=== PATIENT | female | born 1970 | race African-American/Black ===

== ENCOUNTER 2016-09-14 13:41 | Emergency (ER) | payer MEDICAID ==
[~2016-09-14] VITALS: Ht 157.5 cm; Wt 86.2 kg
[~2016-09-14 13:41] MED LIST: ADVAIR 250-501 EACH INH; ALBUTEROL SULFAT2 MG PO; AMBIEN5 MG ORAL; AZITHROMYCIN250 MG ORAL; FUROSEMIDE40 MG ORAL; HYDROCORTISONE28 G2 TP; IBUPROFEN600 MG ORAL; NORCO 5-325 TA1 EAC1 ORAL; NORVASC10 MG ORAL; POTASSIUM20 MEQ/15 ORAL; PREDNISONE20 MG ORAL; ROBAXIN-750750 MG PO
[2016-09-14 14:25] VITALS: BP 118/67
[2016-09-14] MEDS ORDERED: PredniSONE 20mg tab ORAL ONE (14:45)
[2016-09-14] MEDS ORDERED: Morphine Sulfate 4mg/ml Inj IM ONE (15:30)
[2016-09-14] MEDS ORDERED: PREDNISONE20 MG ORAL (16:22)
[2016-09-14 16:31] VITALS: BP 111/62
[2016-09-14 16:33] VITALS: BP 111/62
--- NOTE | 2016-09-14 18:22 | Emergency Room Report ---
History of Present Illness General Chief Complaint: Pain Source: Patient Present Illness HPI The patient is a 45-year-old female with history of SLE and fibromyalgia presenting for total body pain which began yesterday. The patient states that she has taken 3 [place] today without relief. The patient states that she is under pain management but has not been able to see her doctor because of insurance troubles. The patient describes pain as a 10 out of 10 total body ache. Pain described as dull. Pain worse with touch and movement. The patient states that this does feel like similar past flareups. The patient denies other symptoms including nausea, vomiting, fever, chills, chest pain, shortness of breath Allergies: Coded Allergies: No Known Allergies (Unverified , 03/13/12) Patient History Past Medical History: see triage record Pertinent Family History: none Last Menstrual Period: 03/2016 Reviewed Nursing Documentation: PMH: Agreed, PSxH: Agreed Nursing Documentation-PMH Past Medical History: No History, Except For Hx Hypertension: Yes Hx Asthma: Yes Hx Diabetes: No Review of Systems All Other Systems: negative except mentioned in HPI Physical Exam Vital Signs Date Time Temp Pulse Resp B/P Pulse Ox O2 Delivery O2 Flow Rate FiO2 09/14/16 13:53 98.1 94 18 111/75 94 Room Air Sp02 EP Interpretation: reviewed, normal General Appearance: no apparent distress, alert, GCS 15, non-toxic Head: normocephalic, atraumatic Eyes: bilateral eye PERRL, bilateral eye normal inspection ENT: hearing grossly normal, normal pharynx, no angioedema, normal voice Neck: full range of motion, supple/symm/no masses Musculoskeletal: normal range of motion, other - slow gait, tender - diffuse Neurologic: alert, oriented x3, responsive, motor strength/tone normal, sensory intact, speech normal Psychiatric: judgement/insight normal, memory normal, mood/affect normal, no suicidal/homicidal ideation Skin: normal color, no rash, warm/dry, well hydrated Lymphatic: no adenopathy Medical Decision Making PA Attestation Dr. Montejo is my supervising physician. Patient management was discussed with my supervising physician Diagnostic Impression: Primary Impression: Chronic pain Additional Impression: Lupus ER Course The patient is a 45-year-old female with history of SLE and fibromyalgia presenting for total body pain which began yesterday. Ddx considered include but not limited to sprain/strain, fracture, chronic pain , narcotic medication seeking behavior PE: vitals WNL. NADThe patient is resting comfortably in a wheelchair. Diffuse tenderness to palpation. ambulates slowly. The patient was first given prednisone and Motrin for pain but states that this has not helped. The patient is then given 4 mg of morphine IM and states that she is feeling better. The patient will have to followup with pain management and primary doctor for further care. Patient is given a prescription for prednisone. ER precautions are given Last Vital Signs Date Time Temp Pulse Resp B/P Pulse Ox O2 Delivery O2 Flow Rate FiO2 09/14/16 16:33 98.3 80 14 111/62 100 Room Air Status: improved Disposition: HOME, SELF-CARE Condition: Improved Scripts Prednisone* (PREDNISONE*) 20 Mg Tablet 20 MG ORAL DAILY, #5 TAB 0 Refills Prov: MANDI HILL 09/14/16 Referrals: NON PHYSICIAN (PCP) Patient Instructions: Chronic Pain Additional Instructions: I discussed my findings with the patient. All questions and concerns have been answered. Treatment and medication compliance have been addressed. I advised the patient that they need to follow up with PMD in 3-5 days. Return to ED if symptoms worsen, new symptoms arise, or if needed for any reason. Patient verbalized understanding of discharge instructions. The patient will follow up with pain management as discussed MANDI HILL Sep 14, 2016 18:22
== END 2016-09-14 16:33 | disposition home or self-care (01) ==
LOC: EMR 14:20
DX: G89.29 Other chronic pain (principal); M32.9 Systemic lupus erythematosus, unspecified; I10 Essential (primary) hypertension; J45.909 Unspecified asthma, uncomplicated
CPT/HCPCS: 96372; 99283; J2270

== ENCOUNTER 2017-06-03 22:49 | Emergency (ER) | payer MEDICAID ==
[~2017-06-03] VITALS: Ht 157.5 cm; Wt 86.2 kg
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
[2017-06-03 23:08] VITALS: BP 130/86
[2017-06-03] MEDS ORDERED: IBUPROFEN600 MG ORAL (23:09)
[2017-06-03] MEDS ORDERED: Ketorolac 60mg Inj IM ONE (23:15)
[2017-06-03 23:30] VITALS: BP 130/86
== END 2017-06-03 23:40 | disposition home or self-care (01) ==
LOC: EMR 23:00
DX: N64.4 Mastodynia (principal); G89.29 Other chronic pain; J45.909 Unspecified asthma, uncomplicated; I10 Essential (primary) hypertension; M32.9 Systemic lupus erythematosus, unspecified; M79.7 Fibromyalgia
CPT/HCPCS: 96372; 99284

== ENCOUNTER 2017-06-25 21:54 | Emergency (ER) | payer MEDICAID ==
[~2017-06-25] VITALS: Ht 157.5 cm; Wt 86.2 kg
[2017-06-25] MEDS ORDERED: NORCO 10-325 T1 EACH ORAL (22:05)
[2017-06-25] MEDS ORDERED: METRONIDAZOLE250 MG ORAL (22:05)
[2017-06-25 22:13] VITALS: BP 140/89
[2017-06-25 22:34] LABS: APPEARANCE,URINE SLIGHTLY CLOUDY; KETONES,URINE NEGATIVE (NEGATIVE); LEUKOCYTE ESTERASE ,URINE 3+ (NEGATIVE); NITRITE,URINE NEGATIVE (NEGATIVE); PH,URINE 6 (4.5-8.0); PROTEIN,URINE 2+ (NEGATIVE); UROBILINOGEN,URINE NORMAL MG/DL (0.0-1.0)
[2017-06-25 22:55] LABS: BACTERIA,URINE FEW /HPF; SQUAMOUS EPITHELIAL CELL,UR FEW /LPF (NONE/OCC)
[2017-06-25] MEDS ORDERED: Fluconazole 100mg tab ORAL ONE (23:00)
[2017-06-25 23:05] VITALS: BP 140/89
--- NOTE | 2017-06-25 23:35 | Emergency Room Report ---
History of Present Illness General Chief Complaint: Female Urogenital Problems Source: Patient Present Illness HPI 46YOF with 2-3 days white thick vaginal discharge Recently took Abx for ?mastitis bilaterally Spoke to her PMD, put her on flagyl. Has taken for 1 day with no improvement Denies dusyria, polyuria, fever/chills, abd pain, vomiting Allergies: Coded Allergies: No Known Allergies (Unverified , 03/13/12) Patient History Past Medical History: none Past Surgical History: none Pertinent Family History: none Social History: Denies: smoking, alcohol use, drug use Last Menstrual Period: 05/07/17 Now: No : 4 Para: 0 Immunizations: UTD Reviewed Nursing Documentation: PMH: Agreed, PSxH: Agreed Nursing Documentation-PMH Hx Hypertension: Yes Hx Asthma: Yes Hx Diabetes: No Review of Systems All Other Systems: negative except mentioned in HPI Physical Exam Vital Signs Date Time Temp Pulse Resp B/P (MAP) Pulse Ox O2 Delivery O2 Flow Rate FiO2 06/25/17 21:59 98.1 86 14 140/89 99 Room Air Sp02 EP Interpretation: reviewed, normal General Appearance: normal inspection, well appearing, no apparent distress, alert, GCS 15, non-toxic Head: normocephalic, atraumatic Eyes: bilateral eye PERRL, bilateral eye EOMI ENT: normal ENT inspection, hearing grossly normal, normal pharynx, no angioedema, normal voice, TMs + canals normal, uvula midline, moist mucus membranes Neck: normal inspection, full range of motion, supple, thyroid normal, no meningismus, no bony tend Respiratory: normal inspection, lungs clear, normal breath sounds, no rhonchi, no respiratory distress, no retraction, no accessory muscle use, no wheezing, speaking full sentences Cardiovascular #1: regular rate, rhythm, no edema, no JVD, normal capillary refill Gastrointestinal: normal inspection, normal bowel sounds, non tender, soft, no mass, no peritonitis, non-distended, no guarding, no hernia, no pulsatile mass Genitourinary: no CVA tenderness Musculoskeletal: normal inspection, back normal, normal range of motion, no calf tenderness, pelvis stable, Jim's Sign negative Neurologic: normal inspection, alert, oriented x3, responsive, type cutter III-XII nml as tested, motor strength/tone normal, cerebellar normal, normal gait, speech normal Psychiatric: normal inspection, judgement/insight normal, mood/affect normal, no suicidal/homicidal ideation, no delusions Skin: normal inspection, normal color, no rash Lymphatic: normal inspection, no adenopathy Medical Decision Making Diagnostic Impression: Primary Impression: Fungal infection ER Course Based on recent Abx use and thick white DC from vagina, likely shital from Abx Empiric dose of anti-fungal given in ED Advised to finish flagyl Close PMD followup DC home Last Vital Signs Date Time Temp Pulse Resp B/P (MAP) Pulse Ox O2 Delivery O2 Flow Rate FiO2 06/25/17 23:05 98.1 86 14 140/89 99 Room Air Status: improved Disposition: HOME, SELF-CARE Condition: Improved Patient Instructions: Vaginal Yeast Infection, Adult Additional Instructions: - Finish Flagyl given by your primary doctor - Follow up with your doctor in 2-3 days HEBER KWAN M.D. Jun 25, 2017 23:35
== END 2017-06-25 23:05 | disposition home or self-care (01) ==
LOC: EMR 22:06
DX: B48.8 Other specified mycoses (principal); N89.8 Other specified noninflammatory disorders of vagina; I10 Essential (primary) hypertension; J45.909 Unspecified asthma, uncomplicated
CPT/HCPCS: 81003; 81025; 99283

== ENCOUNTER 2018-11-13 21:23 | Emergency (ER) | payer MEDICAID ==
[~2018-11-13] VITALS: Ht 157.5 cm; Wt 79.4 kg
[~2018-11-13 21:23] MED LIST changes: +METRONIDAZOLE250 MG ORAL; +NORCO 10-325 T1 EACH ORAL
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
[2018-11-13 21:37] VITALS: BP 125/86
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
[2018-11-13] MEDS ORDERED: HYDROcodone/Acetamin 5/325 tab ORAL ONE (21:45)
[2018-11-13] MEDS ORDERED: HYDROCODON-ACE1 EA16 ORAL (21:49)
--- NOTE | 2018-11-13 21:51 | NUR ---
ED Nurse Note: Pt cleared by . Pt A/Ox4, showing no signs of acute distress. Discharge paperwork and prescriptions provided. Pt verbalized understanding of all instructions. ID band removed. All belongings taken with patient. Pt ambulated out of ED with steady gait.
[2018-11-13 21:54] VITALS: BP 122/80
== END 2018-11-13 21:51 | disposition home or self-care (01) ==
LOC: EMR 21:36
DX: M54.9 Dorsalgia, unspecified (principal); R52 Pain, unspecified; I10 Essential (primary) hypertension; V43.52XA Car driver injured in collision with other type car in traffic accident, initial encounter; Y92.410 Unspecified street and highway as the place of occurrence of the external cause
CPT/HCPCS: 99282